=== PATIENT | female | born 1950 ===

== ENCOUNTER 2020-09-08 00:46 | Inpatient (IN) ==
[2020-09-08] MEDS ORDERED: Propofol 10 mg/ml 100 ML BTL 100 ML IV ONE (01:07)
[2020-09-08] MEDS ORDERED: Propofol 10 mg/ml 100 ML BTL 100 ML ONE (01:08)
[2020-09-08 02:16] LABS: PO2 Arterial 87 mmHg (80-100)
[2020-09-08 02:22] LABS: PCO2 Arterial 95 mmHg (35-45)
[2020-09-08] MEDS ORDERED: Al Hydrox/Mg Hydrox/Simet LIQ 30 ML UDC PO PRN (02:57)
[2020-09-08] MEDS ORDERED: NS 0.9% 1000 ml BAG 1,000 ML IV SCH (03:00)
[2020-09-08] MEDS ORDERED: Albuterol 2.5mg/3 ml (0.083%) NEB.SOLN INH PRN (03:07)
[2020-09-08] MEDS ORDERED: Propofol 10 mg/ml 100 ML BTL 100 ML IV SCH (04:00)
[2020-09-08] MEDS ORDERED: Albuterol/Ipratropium NEB.SOL (2.5/0.5 MG) 3 ML NEB.SOLN INH SCH (04:00)
[2020-09-08] MEDS: Enoxaparin 40 MG/0.4 ML SYR SUBCUT SCH (05:51)
[2020-09-08] MEDS: methylPREDNISolone SOD 40 mg/ml 1 ml VIAL IV SCH ×3 (05:52→20:04)
[2020-09-08] MEDS: Pantoprazole VIAL 40 MG VIAL IV SCH ×2 (05:53→08:30)
[2020-09-08] MEDS: Albuterol/Ipratropium NEB.SOL (2.5/0.5 MG) 3 ML NEB.SOLN INH SCH ×4 (07:03→23:57)
[2020-09-08] MEDS: Famotidine IV 10 MG/ML 2 ml VIAL (20 mg) IV SLOW PU SCH ×2 (08:30→22:07)
[2020-09-08] MEDS ORDERED: fentaNYL 100 mcg/2 ml 50 MCG/ML VIAL ONE (08:55)
[2020-09-08] MEDS ORDERED: fentaNYL 100 mcg/2 ml 50 MCG/ML VIAL IV SLOW PU ONE ×2 (09:01)
[2020-09-08] MEDS ORDERED: fentaNYL 100 mcg/2 ml 50 MCG/ML VIAL IV SLOW PU PRN (09:06)
[2020-09-08] MEDS ORDERED: acetaZOLAMIDE IV 250 MG in NS 0.9% 50 ML 50 ML IVPB ONE (09:07)
[2020-09-08 09:42] LABS: ABS Lymphocytes 0.4 10^3/ul (1.0-4.8); ABS Monocytes 0.4 10^3/ul (0-0.8); Hematocrit 36 % (35-47); Hemoglobin 12.3 g/dL (12.0-16.0); Lymphocyte % 4.2 %; Mean Corpuscular HGB Conc 34 g/dL (31-36); Mean Corpuscular Hemoglobin 28 pg (27-31); Mean Corpuscular Volume 84 fL (80-97); Mean Platelet Volume 8.3 fL (7.4-10.4); Nucleated Red Blood Cells % 0.1; Platelet Count 185 10^3/uL (150-450); Red Blood Count 4.33 10^6 /uL (3.70-4.87); Red Cell Distribution Width 14 % (10-15); White Blood Count 8.7 10^3/uL (3.5-10.8)
[2020-09-08 09:59] LABS: ALT 13 U/L (7-52); Albumin 3.8 g/dL (3.2-5.2); Albumin/Globulin Ratio 1.5 (1-3); Alkaline Phosphatase 84 U/L (35-149); Blood Urea Nitrogen 24 mg/dL (6-24); Calcium 9.9 mg/dL (8.6-10.3); Chloride 79 mmol/L (101-111); EGFR African American 87.3 (>60); EGFR Non-African American 72.2 (>60); Globulin 2.5 g/dL (2-4); Glucose 118 mg/dL (70-100); Phosphorus 2.2 mg/dL (2.5-5.0); Sodium 132 mmol/L (135-145); Total Protein 6.3 g/dL (6.4-8.9)
[2020-09-08 10:16] LABS: CO2 Carbon Dioxide 50 mmol/L (22-32)
[2020-09-08 10:20] LABS: INR 1.21 (0.82-1.09)
[2020-09-08 10:36] LABS: Potassium, Whole Blood 5.8 mmol/L (3.4-4.5)
[2020-09-08] MEDS: Propofol 10 mg/ml 100 ML BTL 100 ML IV SCH ×4 (11:54→22:33)
[2020-09-08] MEDS: NORMOSOL-R pH 7.4 1000 mL BAG 1,000 ML IV SCH (13:26)
[2020-09-08 14:37] LABS: PCO2 Arterial 63 mmHg (35-45)
[2020-09-08 14:38] LABS: PO2 Arterial 52 mmHg (80-100)
[2020-09-08] MEDS ORDERED: Lidocaine 1% VIAL 10 MG/ML VIAL ONE (15:18)
[2020-09-08] MEDS ORDERED: Lidocaine 1% MPF 5 ML VIAL INJ ONE (15:20)
[2020-09-08] MEDS: Chlorhexidine MOUTHWASH 0.12% 15 ML UDC TOPICAL SCH ×2 (16:54→22:06)
[2020-09-08] MEDS: Levofloxacin 750 MG IVPREMIX 750 MG/150 ML BAG IVPB SCH (16:54)
[2020-09-08 17:06] LABS: Calcium 9.8 mg/dL (8.6-10.3); EGFR African American 76.1 (>60); EGFR Non-African American 62.9 (>60); Magnesium 1.8 mg/dL (1.9-2.7); Phosphorus 2.1 mg/dL (2.5-5.0); Potassium 3.4 mmol/L (3.5-5.0)
[2020-09-08 17:09] LABS: Troponin I 0.01 ng/mL (<0.03)
[2020-09-08] MEDS ORDERED: Magnesium Sulfate 2 gm BAG 2 GM/50 ML BAG IVPB ONE (18:13)
[2020-09-08] MEDS ORDERED: Potassium Phosphate IV 15 MMOLE in NS 0.9% 250 ml 250 ML IVPB ONE (19:15)
[2020-09-08] MEDS: KCL 20 MEQ/100 ML IVPREMIX 20 MEQ/100 ML BAG IV SCH ×2 (20:10→22:16)
[2020-09-09] MEDS: Chlorhexidine MOUTHWASH 0.12% 15 ML UDC TOPICAL SCH ×6 (00:36→20:56)
[2020-09-09] MEDS: NORMOSOL-R pH 7.4 1000 mL BAG 1,000 ML IV SCH (02:32)
[2020-09-09] MEDS: Propofol 10 mg/ml 100 ML BTL 100 ML IV SCH ×5 (02:33→23:08)
[2020-09-09 03:22] LABS: Calcium 9.3 mg/dL (8.6-10.3); EGFR African American 78.1 (>60); EGFR Non-African American 64.6 (>60); Magnesium 2.3 mg/dL (1.9-2.7); Phosphorus 3.8 mg/dL (2.5-5.0); Potassium 3.7 mmol/L (3.5-5.0)
[2020-09-09] MEDS ORDERED: Dextran 70/Hypromellose Tears Eye Drops 15 ml BTL (for Artificials Tears) BOTH EYES PRN (03:47)
[2020-09-09] MEDS: KCL 20 MEQ/100 ML IVPREMIX 20 MEQ/100 ML BAG IV SCH ×2 (04:11→06:09)
[2020-09-09] MEDS: Enoxaparin 40 MG/0.4 ML SYR SUBCUT SCH (04:11)
[2020-09-09] MEDS: methylPREDNISolone SOD 40 mg/ml 1 ml VIAL IV SCH ×3 (04:11→20:56)
[2020-09-09 05:50] LABS: PCO2 Arterial 62 mmHg (35-45); PO2 Arterial 95 mmHg (80-100)
[2020-09-09] MEDS: Albuterol/Ipratropium NEB.SOL (2.5/0.5 MG) 3 ML NEB.SOLN INH SCH ×3 (06:48→19:10)
[2020-09-09 09:32] LABS: Calcium 9.4 mg/dL (8.6-10.3); EGFR African American 82.5 (>60); EGFR Non-African American 68.2 (>60); Magnesium 2.3 mg/dL (1.9-2.7); Phosphorus 3.7 mg/dL (2.5-5.0); Potassium 4.1 mmol/L (3.5-5.0)
[2020-09-09] MEDS: Pantoprazole VIAL 40 MG VIAL IV SCH (09:41)
[2020-09-09] MEDS: Famotidine IV 10 MG/ML 2 ml VIAL (20 mg) IV SLOW PU SCH ×2 (09:42→20:56)
[2020-09-09] MEDS ORDERED: acetaZOLAMIDE IV 250 MG in NS 0.9% 50 ML 50 ML IVPB ONE (10:00)
[2020-09-09 10:10] LABS: Hematocrit 37 % (35-47); Hemoglobin 12.2 g/dL (12.0-16.0); Mean Corpuscular HGB Conc 33 g/dL (31-36); Mean Corpuscular Hemoglobin 28 pg (27-31); Mean Corpuscular Volume 84 fL (80-97); Mean Platelet Volume 8.4 fL (7.4-10.4); Platelet Count 182 10^3/uL (150-450); Red Blood Count 4.37 10^6 /uL (3.70-4.87); Red Cell Distribution Width 14 % (10-15); White Blood Count 10.2 10^3/uL (3.5-10.8)
[2020-09-09 15:54] LABS: EGFR African American 111.3 (>60)
[2020-09-09] MEDS: CMCS: Anastrozole 1 mg TAB (NF) PO SCH (16:31)
[2020-09-09] MEDS: Levofloxacin 750 MG IVPREMIX 750 MG/150 ML BAG IVPB SCH (17:25)
[2020-09-09 19:28] LABS: Calcium 9.6 mg/dL (8.6-10.3)
[2020-09-10] MEDS: Albuterol/Ipratropium NEB.SOL (2.5/0.5 MG) 3 ML NEB.SOLN INH SCH ×4 (00:16→19:39)
[2020-09-10] MEDS: Chlorhexidine MOUTHWASH 0.12% 15 ML UDC TOPICAL SCH ×4 (00:36→13:03)
[2020-09-10] MEDS: Enoxaparin 40 MG/0.4 ML SYR SUBCUT SCH (04:35)
[2020-09-10] MEDS: methylPREDNISolone SOD 40 mg/ml 1 ml VIAL IV SCH ×3 (04:35→19:52)
[2020-09-10 05:05] LABS: Hematocrit 37 % (35-47); Hemoglobin 12.2 g/dL (12.0-16.0); Mean Corpuscular HGB Conc 33 g/dL (31-36); Mean Corpuscular Hemoglobin 28 pg (27-31); Mean Corpuscular Volume 84 fL (80-97); Mean Platelet Volume 8.1 fL (7.4-10.4); Platelet Count 206 10^3/uL (150-450); Red Blood Count 4.44 10^6 /uL (3.70-4.87); Red Cell Distribution Width 15 % (10-15); White Blood Count 12.2 10^3/uL (3.5-10.8)
[2020-09-10] MEDS: Propofol 10 mg/ml 100 ML BTL 100 ML IV SCH (05:05)
[2020-09-10 05:21] LABS: Calcium 9.3 mg/dL (8.6-10.3); EGFR African American 100.4 (>60); Magnesium 2.1 mg/dL (1.9-2.7); Potassium 3.8 mmol/L (3.5-5.0)
[2020-09-10] MEDS: Famotidine IV 10 MG/ML 2 ml VIAL (20 mg) IV SLOW PU SCH ×2 (09:57→19:52)
[2020-09-10] MEDS: Pantoprazole VIAL 40 MG VIAL IV SCH (09:57)
[2020-09-10] MEDS: CMCS: Anastrozole 1 mg TAB (NF) PO SCH (09:58)
[2020-09-10 10:52] LABS: PO2 Arterial 71 mmHg (80-100)
[2020-09-10 10:58] LABS: PCO2 Arterial 86 mmHg (35-45)
[2020-09-10] MEDS: Levofloxacin 750 MG IVPREMIX 750 MG/150 ML BAG IVPB SCH (17:18)
[2020-09-11] MEDS: Albuterol/Ipratropium NEB.SOL (2.5/0.5 MG) 3 ML NEB.SOLN INH SCH ×4 (00:56→18:55)
[2020-09-11] MEDS: Enoxaparin 40 MG/0.4 ML SYR SUBCUT SCH (04:10)
[2020-09-11] MEDS: methylPREDNISolone SOD 40 mg/ml 1 ml VIAL IV SCH ×2 (04:10→16:02)
[2020-09-11 04:28] LABS: Hematocrit 38 % (35-47); Hemoglobin 12.3 g/dL (12.0-16.0); Mean Corpuscular HGB Conc 33 g/dL (31-36); Mean Corpuscular Hemoglobin 28 pg (27-31); Mean Corpuscular Volume 84 fL (80-97); Mean Platelet Volume 7.9 fL (7.4-10.4); Platelet Count 192 10^3/uL (150-450); Red Blood Count 4.45 10^6 /uL (3.70-4.87); Red Cell Distribution Width 15 % (10-15); White Blood Count 9.9 10^3/uL (3.5-10.8)
[2020-09-11 06:05] LABS: Calcium 9.8 mg/dL (8.6-10.3); Potassium 3.3 mmol/L (3.5-5.0)
[2020-09-11 06:11] LABS: EGFR African American 115.5 (>60); EGFR Non-African American 95.4 (>60); Phosphorus 2.4 mg/dL (2.5-5.0)
[2020-09-11] MEDS ORDERED: Potassium Phosphate IV 15 MMOLE in NS 0.9% 250 ml 250 ML IVPB ONE (09:00)
[2020-09-11] MEDS: Pantoprazole VIAL 40 MG VIAL IV SCH (09:28)
[2020-09-11] MEDS: Famotidine IV 10 MG/ML 2 ml VIAL (20 mg) IV SLOW PU SCH ×2 (09:28→20:57)
[2020-09-11] MEDS: KCL 20 MEQ/100 ML IVPREMIX 20 MEQ/100 ML BAG IV SCH ×3 (09:29→16:02)
[2020-09-11] MEDS: CMCS: Anastrozole 1 mg TAB (NF) PO SCH (11:12)
[2020-09-11] MEDS: Levofloxacin 750 MG IVPREMIX 750 MG/150 ML BAG IVPB SCH (18:10)
[2020-09-12] MEDS: Albuterol/Ipratropium NEB.SOL (2.5/0.5 MG) 3 ML NEB.SOLN INH SCH ×4 (00:28→20:04)
[2020-09-12] MEDS: methylPREDNISolone SOD 40 mg/ml 1 ml VIAL IV SCH ×2 (04:07→14:23)
[2020-09-12] MEDS: Enoxaparin 40 MG/0.4 ML SYR SUBCUT SCH (04:07)
[2020-09-12 04:59] LABS: Calcium 9.8 mg/dL (8.6-10.3); EGFR African American 127.2 (>60); EGFR Non-African American 105.2 (>60); Magnesium 1.9 mg/dL (1.9-2.7); Phosphorus 2.6 mg/dL (2.5-5.0); Potassium 4.1 mmol/L (3.5-5.0)
[2020-09-12] MEDS: CMCS: Anastrozole 1 mg TAB (NF) PO SCH (08:36)
[2020-09-12] MEDS: Famotidine IV 10 MG/ML 2 ml VIAL (20 mg) IV SLOW PU SCH (08:38)
[2020-09-12] MEDS: Pantoprazole VIAL 40 MG VIAL IV SCH (08:38)
[2020-09-12] MEDS ORDERED: Senna TAB 8.6 mg TAB PO PRN (09:55)
[2020-09-12] MEDS: Levofloxacin 750 MG IVPREMIX 750 MG/150 ML BAG IVPB SCH (17:04)
[2020-09-13] MEDS: Albuterol/Ipratropium NEB.SOL (2.5/0.5 MG) 3 ML NEB.SOLN INH SCH ×4 (01:18→20:15)
[2020-09-13] MEDS: Enoxaparin 40 MG/0.4 ML SYR SUBCUT SCH (04:12)
[2020-09-13 06:46] LABS: Calcium 9.5 mg/dL (8.6-10.3); Magnesium 2.3 mg/dL (1.9-2.7)
[2020-09-13 06:52] LABS: EGFR African American 129.9 (>60); EGFR Non-African American 107.3 (>60)
[2020-09-13 06:53] LABS: ABS Lymphocytes 0.6 10^3/ul (1.0-4.8); ABS Monocytes 0.9 10^3/ul (0-0.8); ABS Neutrophils 9.1 10^3/ul (1.5-7.7); Eosinophil % 0.3 %; Hematocrit 42 % (35-47); Hemoglobin 13.3 g/dL (12.0-16.0); Lymphocyte % 5.8 %; Mean Corpuscular HGB Conc 32 g/dL (31-36); Mean Corpuscular Hemoglobin 28 pg (27-31); Mean Corpuscular Volume 87 fL (80-97); Mean Platelet Volume 8.6 fL (7.4-10.4); Platelet Count 149 10^3/uL (150-450); Red Blood Count 4.76 10^6 /uL (3.70-4.87); Red Cell Distribution Width 15 % (10-15); White Blood Count 10.7 10^3/uL (3.5-10.8)
[2020-09-13 07:01] LABS: Potassium 4.4 mmol/L (3.5-5.0)
[2020-09-13] MEDS: CMCS: Anastrozole 1 mg TAB (NF) PO SCH (10:17)
[2020-09-14] MEDS: Albuterol/Ipratropium NEB.SOL (2.5/0.5 MG) 3 ML NEB.SOLN INH SCH ×4 (00:40→19:33)
[2020-09-14 04:46] LABS: Hematocrit 36 % (35-47); Hemoglobin 11.9 g/dL (12.0-16.0); Mean Corpuscular HGB Conc 33 g/dL (31-36); Mean Corpuscular Hemoglobin 28 pg (27-31); Mean Corpuscular Volume 85 fL (80-97); Mean Platelet Volume 8.1 fL (7.4-10.4); Platelet Count 193 10^3/uL (150-450); Red Blood Count 4.28 10^6 /uL (3.70-4.87); Red Cell Distribution Width 14 % (10-15); White Blood Count 8.8 10^3/uL (3.5-10.8)
[2020-09-14 05:08] LABS: Calcium 9.5 mg/dL (8.6-10.3); EGFR African American 141.5 (>60); EGFR Non-African American 116.9 (>60); Magnesium 2.1 mg/dL (1.9-2.7)
[2020-09-14] MEDS: Enoxaparin 40 MG/0.4 ML SYR SUBCUT SCH (05:24)
[2020-09-14] MEDS: CMCS: Anastrozole 1 mg TAB (NF) PO SCH (09:19)
[2020-09-14] MEDS ORDERED: Magnesium Hydroxide LIQ 30 ML UDC PO PRN (10:50)
[2020-09-14] MEDS ORDERED: Albuterol HFA INHALER 8 gm MDI INH PRN (16:27)
[2020-09-14] MEDS: [UNRECOGNIZED DRUG - OTHER] INH SCH (18:32)
[2020-09-15] MEDS: Albuterol/Ipratropium NEB.SOL (2.5/0.5 MG) 3 ML NEB.SOLN INH SCH ×4 (00:58→19:29)
[2020-09-15] MEDS: Enoxaparin 40 MG/0.4 ML SYR SUBCUT SCH (06:12)
[2020-09-15 06:44] LABS: Blood Urea Nitrogen 21 mg/dL (6-24); Calcium 9.1 mg/dL (8.6-10.3); Chloride 97 mmol/L (101-111); EGFR Non-African American 122.3 (>60); Glucose 85 mg/dL (70-100); Sodium 138 mmol/L (135-145)
[2020-09-15 06:47] LABS: CO2 Carbon Dioxide 42 mmol/L (22-32)
[2020-09-15] MEDS: CMCS: Anastrozole 1 mg TAB (NF) PO SCH (08:24)
[2020-09-15] MEDS: [UNRECOGNIZED DRUG - OTHER] INH SCH (08:24)
[2020-09-15] MEDS ORDERED: Levalbuterol 0.63MG/3ML NEB UNIT OF USE INH PRN (13:19)
[2020-09-15] MEDS: CMC:FLUTICAS/UMECLI/VILANT 100-62.5-25 MDI (NF) INH SCH (13:39)
[2020-09-16] MEDS: Albuterol/Ipratropium NEB.SOL (2.5/0.5 MG) 3 ML NEB.SOLN INH SCH ×4 (00:43→20:12)
[2020-09-16] MEDS: Enoxaparin 40 MG/0.4 ML SYR SUBCUT SCH (06:09)
[2020-09-16] MEDS: CMC:FLUTICAS/UMECLI/VILANT 100-62.5-25 MDI (NF) INH SCH (09:26)
[2020-09-16] MEDS: CMCS: Anastrozole 1 mg TAB (NF) PO SCH (10:12)
[2020-09-17] MEDS: Albuterol/Ipratropium NEB.SOL (2.5/0.5 MG) 3 ML NEB.SOLN INH SCH ×4 (02:11→19:32)
[2020-09-17 06:10] LABS: Blood Urea Nitrogen 16 mg/dL (6-24); Calcium 8.6 mg/dL (8.6-10.3); Chloride 97 mmol/L (101-111); EGFR Non-African American 131.4 (>60); Glucose 94 mg/dL (70-100); Potassium 4.1 mmol/L (3.5-5.0); Sodium 140 mmol/L (135-145)
[2020-09-17] MEDS ORDERED: Ondansetron 4 mg VIAL 2 MG/ML 2 ml VIAL IV PRN (06:11)
[2020-09-17 06:14] LABS: CO2 Carbon Dioxide 43 mmol/L (22-32)
[2020-09-17] MEDS: Enoxaparin 40 MG/0.4 ML SYR SUBCUT SCH (06:19)
[2020-09-17] MEDS: CMC:FLUTICAS/UMECLI/VILANT 100-62.5-25 MDI (NF) INH SCH (07:40)
[2020-09-17] MEDS: CMCS: Anastrozole 1 mg TAB (NF) PO SCH (08:12)
[2020-09-18] MEDS: Albuterol/Ipratropium NEB.SOL (2.5/0.5 MG) 3 ML NEB.SOLN INH SCH ×4 (00:53→19:50)
[2020-09-18] MEDS: Enoxaparin 40 MG/0.4 ML SYR SUBCUT SCH (05:27)
[2020-09-18] MEDS: CMCS: Anastrozole 1 mg TAB (NF) PO SCH (08:39)
[2020-09-18] MEDS: CMC:FLUTICAS/UMECLI/VILANT 100-62.5-25 MDI (NF) INH SCH (08:48)
[2020-09-18 14:02] LABS: Blood Urea Nitrogen 13 mg/dL (6-24); Calcium 9.6 mg/dL (8.6-10.3); Chloride 89 mmol/L (101-111); EGFR African American 122.3 (>60); EGFR Non-African American 101.1 (>60); Glucose 125 mg/dL (70-100); Magnesium 1.7 mg/dL (1.9-2.7); Potassium 4.2 mmol/L (3.5-5.0); Sodium 140 mmol/L (135-145)
[2020-09-18] MEDS ORDERED: Magnesium Sulfate 2 gm BAG 2 GM/50 ML BAG IVPB ONE (14:09)
[2020-09-18 14:20] LABS: CO2 Carbon Dioxide 49 mmol/L (22-32)
[2020-09-18] MEDS ORDERED: acetaZOLAMIDE IV 500 MG in NS 0.9% 50 ML 50 ML IVPB ONE (14:35)
[2020-09-18 15:45] LABS: PO2 Arterial 60 mmHg (80-100)
[2020-09-18 15:54] LABS: PCO2 Arterial 74 mmHg (35-45)
[2020-09-19] MEDS: Albuterol/Ipratropium NEB.SOL (2.5/0.5 MG) 3 ML NEB.SOLN INH SCH ×4 (01:37→19:30)
[2020-09-19] MEDS: Enoxaparin 40 MG/0.4 ML SYR SUBCUT SCH (04:59)
[2020-09-19 05:04] LABS: Venous Bicarbonate HCO3 36.3 mmol/L (24-28)
[2020-09-19 05:05] LABS: Hematocrit 36 % (35-47); Hemoglobin 11.4 g/dL (12.0-16.0); Mean Corpuscular HGB Conc 32 g/dL (31-36); Mean Corpuscular Hemoglobin 28 pg (27-31); Mean Corpuscular Volume 86 fL (80-97); Platelet Count 188 10^3/uL (150-450); Red Blood Count 4.11 10^6 /uL (3.70-4.87); Red Cell Distribution Width 15 % (10-15); White Blood Count 7.6 10^3/uL (3.5-10.8)
[2020-09-19 05:22] LABS: Calcium 8.9 mg/dL (8.6-10.3); EGFR African American 122.3 (>60); EGFR Non-African American 101.1 (>60); Magnesium 2.2 mg/dL (1.9-2.7); Potassium 3.7 mmol/L (3.5-5.0)
[2020-09-19] MEDS: CMC:FLUTICAS/UMECLI/VILANT 100-62.5-25 MDI (NF) INH SCH (07:30)
[2020-09-19] MEDS ORDERED: Potassium Chloride LIQUID 20 MEQ/15 ML LIQUID PO ONE (09:00)
[2020-09-19] MEDS: CMCS: Anastrozole 1 mg TAB (NF) PO SCH (09:31)
[2020-09-19] MEDS ORDERED: Levalbuterol 0.63MG/3ML NEB UNIT OF USE INH PRN (10:04)
[2020-09-19 14:21] LABS: Venous Bicarbonate HCO3 33.9 mmol/L (24-28)
[2020-09-19 14:42] LABS: Calcium 9.3 mg/dL (8.6-10.3); EGFR African American 111.3 (>60); Potassium 4.5 mmol/L (3.5-5.0)
[2020-09-20] MEDS: Albuterol/Ipratropium NEB.SOL (2.5/0.5 MG) 3 ML NEB.SOLN INH SCH ×4 (00:30→20:08)
[2020-09-20] MEDS: Enoxaparin 40 MG/0.4 ML SYR SUBCUT SCH (05:19)
[2020-09-20 07:36] LABS: Venous Bicarbonate HCO3 32.3 mmol/L (24-28)
[2020-09-20 07:37] LABS: Hematocrit 33 % (35-47); Hemoglobin 10.8 g/dL (12.0-16.0); Mean Corpuscular HGB Conc 33 g/dL (31-36); Mean Corpuscular Hemoglobin 28 pg (27-31); Mean Corpuscular Volume 85 fL (80-97); Mean Platelet Volume 7.2 fL (7.4-10.4); Platelet Count 227 10^3/uL (150-450); Red Blood Count 3.84 10^6 /uL (3.70-4.87); Red Cell Distribution Width 15 % (10-15)
[2020-09-20] MEDS: CMC:FLUTICAS/UMECLI/VILANT 100-62.5-25 MDI (NF) INH SCH (07:43)
[2020-09-20 07:53] LABS: EGFR African American 122.3 (>60); EGFR Non-African American 101.1 (>60); Potassium 3.6 mmol/L (3.5-5.0)
[2020-09-20] MEDS ORDERED: Potassium Chlor 20 meq TAB.ER PO ONE (07:54)
[2020-09-20] MEDS: CMCS: Anastrozole 1 mg TAB (NF) PO SCH (08:23)
[2020-09-20 16:13] LABS: Venous Bicarbonate HCO3 29.4 mmol/L (24-28)
[2020-09-20 16:30] LABS: Blood Urea Nitrogen 15 mg/dL (6-24); CO2 Carbon Dioxide 38 mmol/L (22-32); Calcium 9.2 mg/dL (8.6-10.3); Chloride 100 mmol/L (101-111); EGFR African American 107.4 (>60); EGFR Non-African American 88.8 (>60); Glucose 133 mg/dL (70-100); Potassium 4.6 mmol/L (3.5-5.0); Sodium 138 mmol/L (135-145)
[2020-09-21] MEDS: Albuterol/Ipratropium NEB.SOL (2.5/0.5 MG) 3 ML NEB.SOLN INH SCH ×4 (00:47→20:00)
[2020-09-21] MEDS: Enoxaparin 40 MG/0.4 ML SYR SUBCUT SCH (05:04)
[2020-09-21 05:31] LABS: Hematocrit 35 % (35-47); Mean Corpuscular HGB Conc 32 g/dL (31-36); Mean Corpuscular Hemoglobin 27 pg (27-31); Mean Corpuscular Volume 86 fL (80-97); Mean Platelet Volume 6.8 fL (7.4-10.4); Platelet Count 246 10^3/uL (150-450); Red Blood Count 4.03 10^6 /uL (3.70-4.87); Red Cell Distribution Width 15 % (10-15); White Blood Count 8.4 10^3/uL (3.5-10.8)
[2020-09-21 05:50] LABS: Calcium 9.2 mg/dL (8.6-10.3); EGFR African American 115.5 (>60); EGFR Non-African American 95.4 (>60); Potassium 3.9 mmol/L (3.5-5.0)
[2020-09-21] MEDS: CMC:FLUTICAS/UMECLI/VILANT 100-62.5-25 MDI (NF) INH SCH (07:22)
[2020-09-21] MEDS: CMCS: Anastrozole 1 mg TAB (NF) PO SCH (09:48)
[2020-09-22] MEDS: Albuterol/Ipratropium NEB.SOL (2.5/0.5 MG) 3 ML NEB.SOLN INH SCH ×4 (00:43→17:40)
[2020-09-22 04:40] LABS: Venous Bicarbonate HCO3 33.4 mmol/L (24-28)
[2020-09-22 05:06] LABS: Hematocrit 31 % (35-47); Hemoglobin 10.3 g/dL (12.0-16.0); Mean Corpuscular HGB Conc 33 g/dL (31-36); Mean Corpuscular Hemoglobin 28 pg (27-31); Mean Corpuscular Volume 85 fL (80-97); Mean Platelet Volume 7.2 fL (7.4-10.4); Platelet Count 203 10^3/uL (150-450); Red Blood Count 3.69 10^6 /uL (3.70-4.87); Red Cell Distribution Width 15 % (10-15); White Blood Count 6.6 10^3/uL (3.5-10.8)
[2020-09-22 05:21] LABS: EGFR African American 141.5 (>60); EGFR Non-African American 116.9 (>60); Magnesium 1.9 mg/dL (1.9-2.7); Potassium 3.7 mmol/L (3.5-5.0)
[2020-09-22] MEDS: Enoxaparin 40 MG/0.4 ML SYR SUBCUT SCH (05:49)
[2020-09-22] MEDS: CMC:FLUTICAS/UMECLI/VILANT 100-62.5-25 MDI (NF) INH SCH (06:59)
[2020-09-22] MEDS: CMCS: Anastrozole 1 mg TAB (NF) PO SCH (09:01)
[2020-09-22] MEDS: Clotrimazole 1% CREAM 45 GM TOPICAL SCH ×2 (09:51→20:48)
[2020-09-22] MEDS: Nicotine PATCH 14 MG/24 HR PATCH TRANSDERM SCH (09:51)
[2020-09-22] MEDS ORDERED: Levalbuterol HFA INHALER MDI INH PRN (17:37)
[2020-09-23] MEDS: Albuterol/Ipratropium NEB.SOL (2.5/0.5 MG) 3 ML NEB.SOLN INH SCH ×3 (01:40→13:31)
[2020-09-23] MEDS: Enoxaparin 40 MG/0.4 ML SYR SUBCUT SCH (05:13)
[2020-09-23 06:59] LABS: Hematocrit 31 % (35-47); Hemoglobin 10.3 g/dL (12.0-16.0); Mean Corpuscular HGB Conc 34 g/dL (31-36); Mean Corpuscular Hemoglobin 28 pg (27-31); Mean Corpuscular Volume 84 fL (80-97); Mean Platelet Volume 7.1 fL (7.4-10.4); Platelet Count 216 10^3/uL (150-450); Red Blood Count 3.63 10^6 /uL (3.70-4.87); Red Cell Distribution Width 15 % (10-15); White Blood Count 6.1 10^3/uL (3.5-10.8)
[2020-09-23 07:13] LABS: Calcium 8.9 mg/dL (8.6-10.3); EGFR African American 144.7 (>60); EGFR Non-African American 119.6 (>60); Potassium 3.9 mmol/L (3.5-5.0)
[2020-09-23] MEDS: CMC:FLUTICAS/UMECLI/VILANT 100-62.5-25 MDI (NF) INH SCH (07:20)
[2020-09-23] MEDS: CMCS: Anastrozole 1 mg TAB (NF) PO SCH (08:58)
[2020-09-23] MEDS: Nicotine PATCH 14 MG/24 HR PATCH TRANSDERM SCH (08:59)
[2020-09-23] MEDS: Clotrimazole 1% CREAM 45 GM TOPICAL SCH (08:59)
[2020-09-23 12:57] VITALS: BP 133/58
== END 2020-09-23 15:18 | DRG 208 ==
LOC: ED 00:46 → ICU 02:57 → MEDTELE 09-12 12:13
PROVIDERS: ADMIT Hospitalist; ATTEND Internal Medicine